=== PATIENT | female | born 1955 | race Caucasian/White ===

== ENCOUNTER → 2017-12-08 16:15 | Outpatient (CLI) | payer OTHER, SELFPAY ==
--- NOTE | 2017-12-08 16:21 | MM_ITS ---
MM Dig screening mamm BI w/CAD ORDERING PHYSICIAN : Pily Hernandez MD PATIENT AGE: 62 years GENDER: Female COMPARISON: Outside films are very helpful in this case March, 2011, December 2012. February 2014 and 2014, June 2016. INDICATION: ITS.REASON: SCREENING TECHNIQUE: Standard CC and MLO images were obtained. R2 CAD reviewed. FINDINGS: Low-density background .. Moderate fatty replacement RIGHT BREAST:Outside films are very helpful in this case to demonstrate that the long-standing post surgical biopsy area and stellate density at superior right breast is stable. In. Stellate area of density at the superior breast 11 o'clock position is again noted .There exams dating back to 2009 which showed this as the long-standing post lumpectomy/radiation site. The density here has diminished progressively since 2009 LEFT BREAST: There is a small area of focal density at the deep lateral left breast best seen on MLO view it measures up to 7 mm length. X 4 mm. And may merely be a summation shadow but is more pronounced today and in this high-risk patient I would suggest return for spot views of this area labeled X best seen on MLO, but also evident laterally on CC,. ( MLO, 90 degrees and cc spot views recommended) IMPRESSION: 1. RIGHT BREAST Stellate area upper outer quadrant right breast but long-standing overall stable and can be followed in one year 2. LEFT BREAST: Small focal area of density deep lateral left breast. May be summation shadow but warrant additional spot views to further evaluate in this high-risk patient. It is best seen on MLO view BI-RADS Category: 0 Need Additional Imaging Evaluaiton. RECOMMENDED FOLLOW-UP: IMM - IMMEDIATE FOLLOW-UP RECOMMENDED Spot views left breast (A letter has been sent to the patient regarding results of the study.)
== END ==
PROVIDERS: Family Provider Family Medicine; PCP Family Medicine; Visit Provider Family Medicine
DX: Z12.31 Encounter for screening mammogram for malignant neoplasm of breast (principal)
CPT/HCPCS: 77067

== ENCOUNTER → 2017-12-09 07:11 | Outpatient (CLI) | payer OTHER, SELFPAY ==
[2017-12-09 07:27] LABS: Basophils # 0.1 K/mm3 (0-0.2); Basophils % 0.6 % (0.1-2.0); Eosinophils # 0.5 K/mm3 (0.0-0.4); Eosinophils % 7.3 % (0.1-12.0); Hematocrit 38.7 % (37.0-47.0); Hemoglobin 12.7 g/dL (12.2-16.2); Lymphocytes # 1.7 K/mm3 (0.7-4.5); Lymphocytes % 22.5 K/mm3 (10-50); Mean Corpuscular HGB Conc 32.9 g/dL (31.8-35.4); Mean Corpuscular Hemoglobin 28.2 pg (27.0-31.2); Mean Corpuscular Volume 85.8 fl (81-99); Mean Platelet Volume 7.4 fl (7.4-10.4); Monocytes # 0.4 K/mm3 (0.1-1.0); Monocytes % 5.6 % (1.7-9.3); Neutrophils # 4.8 K/mm3 (1.8-7.8); Platelet Count 232 K/mm3 (142-424); Red Blood Count 4.51 M/mm3 (4.20-5.40); Red Cell Distribution Width 13.9 % (11.5-17.5); White Blood Count 7.4 K/mm3 (4.8-10.8)
[2017-12-09 07:35] LABS: INR 0.93 (0.9-1.1); Prothrombin Time 9.6 seconds (9.4-11.8)
[2017-12-09 08:16] LABS: Alanine Aminotransferase 53 U/L (12-78); Albumin Level 3.5 gm/dL (3.4-5.0); Albumin/Globulin Ratio 0.9 (1.1-1.8); Alkaline Phosphatase 50 U/L (46-116); Anion Gap 8.4 mEq/L (5-15); Aspartate Amino Transferase 32 U/L (15-37); Bilirubin,Total 0.3 mg/dL (0.2-1.0); Blood Urea Nitrogen 22 mg/dL (7-18); Calcium 9.6 mg/dL (8.5-10.1); Carbon Dioxide 29 mmol/L (21.0-32.0); Chloride 103 mmol/L (98-107); Chol/HDL Ratio 3.8 (1-3.5); Cholesterol 158 mg/dL (140-200); Creatinine,Serum 1.04 mg/dL (0.55-1.02); Estimated Glomerular Filt Rate 54 ml/min (>60); Free T4 (Free Thyroxine) 1.42 ng/dl (0.76-1.46); GFR (African American) 65 ML/MIN (>60); Globulin 4.1 gm/dl (1.3-3.2); Glucose 113 mg/dL (74-106); HDL Cholesterol 42 mg/dL (29-89); LDL Cholesterol 81 mg/dL (0-130); Potassium 4.4 mmoL/L (3.5-5.1); Sodium 136 mmol/L (136-145); Thyroid Stimulating Hormone 0.21 uIU/ml (0.358-3.740); Total Protein,Serum 7.6 gm/dL (6.4-8.2); Triglycerides 176 mg/dL (30-200); VLDL Cholesterol 35 mg/dL (0-40)
[2017-12-10 10:59] LABS: Vitamin B12 1053 pg/mL (232-1245)
== END ==
PROVIDERS: Visit Provider Emergency Medicine
DX: R04.0 Epistaxis (principal); E03.9 Hypothyroidism, unspecified; E53.8 Deficiency of other specified B group vitamins; E78.2 Mixed hyperlipidemia; I10 Essential (primary) hypertension
CPT/HCPCS: 36415; 80053; 80061; 82607; 84439; 84443; 85025; 85610

== ENCOUNTER → 2017-12-18 12:50 | Outpatient (CLI) | payer OTHER, SELFPAY ==
--- NOTE | 2017-12-18 12:57 | MM_ITS ---
MM Dig mamm DX unilat LT CAD, US breast LT complete INDICATION: Follow-up abnormal mammogram ORDERING PHYSICIAN: Suma Wasserman MD PATIENT AGE: 62 years COMPARISON: 12/08/2017, 07/12/2016, 03/02/2015 TECHNIQUE: Problem-solving views performed of the left breast along with left breast ultrasound FINDINGS: There is persistent somewhat ill-defined area of asymmetric density within the outer aspect of the left breast at the 3:00 region measuring approximately 6 mm.. This does persist on the rolled views and a straight ML view. Left breast ultrasound: There is a somewhat ill-defined area of decreased echogenicity measuring approximate 6 mm in the outer aspect of the left breast. This may correspond to the mammographic abnormality but is is questionable. Biopsy is recommended. IMPRESSION: Persistent asymmetric density in the 3:00 region of the right breast with questionable sonographic correlate. Recommend biopsy in this patient with history of breast cancer. Suggest stereotactic directed biopsy BI-RADS Category: 4 Suspicious Abnormality-Biopsy Considered RECOMMENDED FOLLOW-UP: BIO - BIOPSY RECOMMENDED (A letter has been sent to the patient regarding results of the study.)
== END ==
PROVIDERS: Family Provider Family Medicine; PCP Family Medicine; Visit Provider Emergency Medicine
DX: R92.8 Other abnormal and inconclusive findings on diagnostic imaging of breast (principal)
CPT/HCPCS: 76641; 77065

== ENCOUNTER → 2018-01-16 14:36 | Outpatient (CLI) | payer OTHER, SELFPAY ==
[2018-01-16 16:05] LABS: Free T4 (Free Thyroxine) 1.11 ng/dl (0.76-1.46); Thyroid Stimulating Hormone 0.84 uIU/ml (0.358-3.740)
== END ==
PROVIDERS: PCP Emergency Medicine; Visit Provider Emergency Medicine
DX: E03.9 Hypothyroidism, unspecified (principal)
CPT/HCPCS: 36415; 84439; 84443

== ENCOUNTER → 2018-02-04 10:27 | Outpatient (CLI) | payer OTHER, SELFPAY ==
--- NOTE | 2018-02-04 10:30 | MM_ITS ---
MM stereotactic loc LT Post biopsy mammogram ORDERING PHYSICIAN: Willy Parker MD PATIENT AGE: 62 years Comparison: 12/18/2017 Limited focused H&P: HISTORY: Asymmetric density outer aspect left breast PROCEDURE: The patient was placed on the stereotactic table and the abnormality in the lateral aspect of left breast was localized in the most appropriate projection. The breast was prepped in the routine manner, with sterile prep and the overlying skin anesthetized. A 3 to 4 mm skin incision was performed and the 9 gauge Iguana[employer]ee in [place] vacuum-assisted core biopsy needle was advanced to the region of the calcification. Pre- and post fire images were obtained. Post biopsy images show a defect in the area of the mammographic abnormality.. The core biopsies obtained were sent for specimen mammography. The patient tolerated the procedure well without complications. Specimen was sent for pathologic analysis A tiny titanium nonferromagnetic MicroMark was positioned through the mammotome needle into the biopsy site. Postbiopsy mammogram: Postbiopsy changes are present in the outer aspect of the left breast with the clip in place at this region. Pathology: Invasive lobular carcinoma grade 2 IMPRESSION: Successful stereotactic directed biopsy left breast demonstrating invasive lobular carcinoma grade 2. Surgical consult suggested
== END ==
PROVIDERS: Family Provider Family Medicine; PCP Emergency Medicine; Visit Provider Surgery
DX: Z85.3 Personal history of malignant neoplasm of breast (principal); R92.8 Other abnormal and inconclusive findings on diagnostic imaging of breast
CPT/HCPCS: 19081

== ENCOUNTER 2018-08-25 16:00 | Outpatient (RCR) | payer OTHER, SELFPAY | END 2018-08-25 16:05 | disposition home or self-care (01) | LOC: PT 16:00 | DX: C50.812 Malignant neoplasm of overlapping sites of left female breast (principal) | CPT/HCPCS: 97110; 97140; 97163 ==

== ENCOUNTER → 2019-10-11 18:03 | Outpatient (CLI) | payer OTHER, SELFPAY ==
--- NOTE | 2019-10-11 18:11 | XR_ITS ---
PROCEDURE: XR CHEST 2V CLINICAL HISTORY: COUGH Cough, history of breast cancer COMPARISON: No exams were available for comparison FINDINGS: The cardiomediastinal silhouette and pulmonary vascularity are within normal limits. The lungs are clear without infiltrates, suspicious nodules, or pleural effusions. There is mild kyphosis IMPRESSION: No acute findings. Dictated by: Manuel Holland MD 10/11/2019 20:07 Electronically signed by Manuel Holland MD in [place] 10/11/2019 20:07
--- NOTE | 2019-10-11 18:12 | XR_ITS ---
PROCEDURE: XR HAND RT MIN 3V CLINICAL INDICATION: PAIN OF RIGHT THUMB COMPARISON: No exams were available for comparison FINDINGS: There are osteoarthritic changes at the DIP joints of digits 2 and 3. Osteoarthritic changes are present at the 1st metacarpal carpal joint with some erosive change at the base of the 2nd metacarpal. These findings could be related to erosive osteoarthritis. Please correlate with clinical parameters. Other findings:None. 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
== END ==
PROVIDERS: PCP Family Medicine; Visit Provider Family Medicine
DX: M79.644 Pain in right finger(s) (principal); R05 Cough
CPT/HCPCS: 71046; 73130

== ENCOUNTER 2020-02-05 20:48 | Emergency (ER) | payer OTHER, SELFPAY ==
[2020-02-05 20:53] VITALS: BP 110/78; PULSE 66; RESP 18; TEMP 36.7; O2SAT 99; BMI 28.3
--- NOTE | 2020-02-05 20:56 | PC.NURSE ---
Patient states that she had her Tdap within the past 2 years.
--- NOTE | 2020-02-05 20:59 | HMH.EDUTC ---
[facility] [place] [facility] [place] Clinical Impression: Laceration Disposition: Home, Self-Care Condition on Discharge: Good Instructions: How to Care for a Laceration After Repair, DI for Laceration Repair With Dermabond Additional Instructions: Do not pick or scratch off dermabond allow it to wear off finger Do not get it wet Keep area clean and dry no bandaids loose dressing if needed Straight to ER if any life threatening symptoms Follow up with Family Doctor if needed Watch for signs of infection such as redness, drainage streaks etc Return if needed Straight to ER if any life threatening symptoms Referrals: Pily Hernandez MD [Primary Care Provider] - As needed Time of Disposition: 21:07 Medical Decision Making - John Inquiry Pt receiving controlled substance: No John was queried for this patient: No Vital Signs: 02/05/20 20:53 Temperature 98.1 F Temperature Source Oral Pulse Rate [Radial] 66 Respiratory Rate 18 Blood Pressure [Right Arm] 110/78 Blood Pressure Mean [Right Arm] 88 Blood Pressure Source [Right Arm] Automatic Cuff Blood Pressure Position [Right Arm] Sitting 02 Sat by Pulse Oximetry 99 Oxygen Delivery Method Room Air [facility] [place] [facility] [place] HPI - General Stated complaint: AO [id number] Lac L Index finger Time Seen by Provider: 02/05/20 20:59 Mode of Arrival: Ambulatory Source of Information: Patient Limitations: No Limitations Description of Symptoms (Recalled from Triage Doc. by RN): lac to left index finger HEENT Symptoms (Recalled from RN notes): No Resp Symptoms (Recalled from RN notes): No Skin Symptoms (Recalled from RN notes): Yes MS Symptoms (Recalled from RN notes): No Functional Status (Recalled from RN notes): wnl - History of Present Illness Provider Complaint: Patient states that she was cutting up a pork tenderloin when the knife slipped and cut her on her left index finger beside her nail area States that she applied pressure and bandage and family was worried and wanted her to get it checked - Related Data Home Medications Medication Instructions Recorded Confirmed atorvastatin 10 mg tablet 10 mg PO DAILY 01/16/18 06/10/18 levothyroxine 112 mcg capsule 112 mcg PO DAILY 01/16/18 06/10/18 triamterene 37.5 1 tab PO DAILY 01/16/18 03/14/18 mg-hydrochlorothiazide 25 mg tablet Cholecalciferol (Vitamin D3) 5,000 unit PO DIRECTED 03/14/18 06/10/18 [Vitamin D3] Cyanocobalamin (Vitamin B-12) 1,000 mcg PO DIRECTED 03/14/18 06/10/18 [B-12] Ubidecarenone [Coenzyme Q10] 100 mg PO DAILY 03/14/18 06/10/18 aspirin 81 mg tablet,delayed 81 mg PO DAILY 06/10/18 06/10/18 release letrozole 2.5 mg tablet 2.5 mg PO DAILY 06/10/18 06/10/18 Allergies Allergy/AdvReac Type Severity Reaction Status Date / Time No Known Allergies Allergy Verified 06/10/18 15:09 - Worker's Comp Is this a Worker's Comp case?: No [facility] History - Hepatitis A Screen Drug use history?: No High risk sexual behaviors?: No History of sexually transmitted infection?: No Currently employed?: No Childcare worker?: No Do you have indoor plumbing?: Yes Do you have electricity?: Yes Attestation statement:: This patient has been screened for Hepatitis A risk factors. I have reviewed the patient's past medical history: Yes Medical History: Reports:: Cancer Denies:: Diabetes Mellitus Type 1, Diabetes Mellitus Type 2 Laterality Cases: Right: Lumpectomy, Bilateral: Breast Biopsy, Mastectomy Other Surgeries: Yes: Cancer Surgery, , Other Comment: ovary removed, breast lump removed - Social History Smoking Status: Former smoker Alcohol Intake: never Substance Use Type: denies use Occupational Status: other Housing: house Family Hx:: Diabetes, Heart Attack, Hyperlipidemia, Hypertension, Stroke, Thyroid Disorder, Cancer ROS Obtained: Yes All systems reviewed & no additional complaints, Yes Systems reviewed as appropriate & no additional complaints - Allergic/Immunologic Comments: Laceration to left
[2020-02-05 21:08] VITALS: BP 110/78; PULSE 66; RESP 18; TEMP 36.7; O2SAT 99
== END 2020-02-05 21:12 | disposition home or self-care (01) ==
PROVIDERS: Emergency Provider Nurse Practitioner; PCP Family Medicine
DX: S61.211A Laceration without foreign body of left index finger without damage to nail, initial encounter (principal); W26.0XXA Contact with knife, initial encounter; Y92.010 Kitchen of single-family (private) house as the place of occurrence of the external cause; Z90.13 Acquired absence of bilateral breasts and nipples; Z87.891 Personal history of nicotine dependence
CPT/HCPCS: 12001; 99201

== ENCOUNTER → 2020-08-05 08:45 | Outpatient (CLI) | payer OTHER, SELFPAY ==
[2020-08-05 10:32] LABS: Coronavirus 19 IgG Antibody Positive (Negative); Coronavirus 19 IgM Antibody Negative (Negative)
== END ==
PROVIDERS: Visit Provider Internal Medicine Gastroenterology
DX: Z01.812 Encounter for preprocedural laboratory examination (principal); Z20.822 Contact with and (suspected) exposure to COVID-19; Z12.11 Encounter for screening for malignant neoplasm of colon
CPT/HCPCS: 36415; 86328

== ENCOUNTER 2020-08-07 12:21 | Day surgery (SDC) | payer OTHER, SELFPAY ==
[2020-08-02 13:36] VITALS: BMI 28.3
[2020-08-07] VITALS (7 sets, daily range): BP systolic 120–139; BP diastolic 58–101; PULSE 63–75; RESP 14–18; TEMP 36.6–37.2; O2SAT 96–100
--- NOTE | 2020-08-07 14:40 | P.PN_ITS ---
[facility] Anesthesia Checklist - Patient Identification Patient Identification: Arm Band - Structural Data Admitted From: Home Planned Operative Procedure/s: Colonoscopy Consent for Planned Operative Procedure(s) Verified: Yes - NPO Status Verified Time NPO: 00:00 - Airway Assessment Dentition: Dentures-good fit - Neurological Assessment Level of Consciousness: Awake, Alert Hx Seizures: No Numbness or tingling in extremities: No - Anesthesia Plan Anesthesia Risk discussed: Yes Anesthesia Plan: Verified ASA Class: II Anesthesia Type: MAC [facility] History I have reviewed the patient's past medical history: Yes Medical History: Reports:: Cancer (BREAST), Hyperlipidemia, Hypertension Denies:: Diabetes Mellitus Type 1, Diabetes Mellitus Type 2, MRSA, Seizures *Have you ever received a pneumonia vaccine?: Yes *Have you received a flu vaccine this season?: Yes Other Medical History: Reports: Hypothyroidism Anesthesia experience/problems:: None Laterality Cases: Right: Lumpectomy, Bilateral: Breast Biopsy, Mastectomy Other Surgeries: Yes: Cancer Surgery, , Other Amputation: No Fractures: No - *Social History Last grade of school completed: High school graduate Smoking Status: Former smoker Alcohol Intake: never Substance Use Type: denies use *Occupational Status:: employed Housing: house *Travel in the last 8 weeks: None Family Hx:: Diabetes, Heart Attack, Hyperlipidemia, Hypertension, Stroke, Thyroid Disorder, Cancer
--- NOTE | 2020-08-07 15:07 | P.PCN_ITS ---
[facility] Procedure Note Procedure Note:: Colonoscopy Procedure Report: Colonoscopy with cold snare polypectomy Endoscopist: Greg Shaffer II, MD Referring physician: Daniel Hernandez MD Date of Procedure: August 07, 2020 Equipment: Olympus 190 variable stiffness pediatric colonoscope Sedation: MAC sedation Indication: Mrs. Tobar is a 64-year-old female who is here for follow-up screening/surveillance colonoscopy. She did have a colonoscopy 12 years ago at age 52 that was normal. She reports no abdominal pain, weight loss, change in her bowel habits or rectal bleeding. She reports no family history of colon cancer. Procedure: Prior to the procedure, a history and physical exam was performed, and patient's medications and allergies were reviewed. The risks, benefits and alternatives of the sedation and procedure were discussed with the patient. All questions were answered and informed consent was obtained. The patient was brought to the procedure room. Patient identification and proposed procedure were verified by the physician and the nurse. The patient was placed in a left lateral decubitus position and the scope was passed under direct vision. Throughout the procedure, the patient's blood pressure, pulse, and oxygen saturations were monitored continuously. The colonoscopy was accomplished without difficulty. The patient tolerated the procedure well. Findings: On digital rectal examination there was normal rectal tone. There were no external hemorrhoids. The colonoscope was introduced through the anal canal t o the rectum and advanced to the cecum. The ileocecal valve and appendiceal orifice were identified. The scope was advanced a short distance into the ileum which appeared grossly normal. The scope was then withdrawn into the colon. The cecum, ascending and transverse colon and mucosa were grossly normal. There were scattered diverticuli throughout the descending and sigmoid colon (LEFT colon). There was a diminutive hyperplastic appearing 4 mm polyp in the rectum removed via cold snare polypectomy. Upon retroflexion within the rectum there were grade 1-2 internal hemorrhoids. The preparation was excellent throughout with Morning Sun Preparation Score of 9. The cecal time was 12 minutes. Impression: 1. Diminutive rectal polyp (rule out hyperplastic polyp) 2. Left-sided diverticulosis 3. Grade 1-2 internal hemorrhoids Plan: I will follow up the polyp histology and if the polyp is hyperplastic, she will not require surveillance colonoscopy again for 10 years. I would encourage fiber supplementation on a long-term daily maintenance basis.
--- NOTE | 2020-08-07 15:11 | HMH.ANESI ---
[facility] Anesthesia Record Part I Intake, IV Amount: 600 Estimated blood loss (mL): 0 Urine output (mL): 0 Blood Pressure: 126/58 SaO2: 97 Pulse Rate: 74 Respiratory Rate: 14 Temperature: 98.9 F Patient is:: Drowsy Stable to PACU at:: 15:10
== END 2020-08-07 15:40 | disposition home or self-care (01) ==
LOC: OUTP 12:23
PROVIDERS: PCP Family Medicine; Visit Provider Internal Medicine Gastroenterology
PROC: 0DJD8ZZ Inspection of Lower Intestinal Tract, Via Natural or Artificial Opening Endoscopic (ICD-10-PCS; CPT 45378; principal; 2020-08-07 13:30)
DX: Z12.11 Encounter for screening for malignant neoplasm of colon (principal); K62.1 Rectal polyp; K57.30 Diverticulosis of large intestine without perforation or abscess without bleeding; K64.0 First degree hemorrhoids; E78.5 Hyperlipidemia, unspecified; I10 Essential (primary) hypertension; Z85.3 Personal history of malignant neoplasm of breast; Z90.10 Acquired absence of unspecified breast and nipple; Z87.891 Personal history of nicotine dependence; Z83.3 Family history of diabetes mellitus; Z82.49 Family history of ischemic heart disease and other diseases of the circulatory system; Z83.49 Family history of other endocrine, nutritional and metabolic diseases; Z82.3 Family history of stroke
CPT/HCPCS: 45385

== ENCOUNTER → 2021-07-19 14:40 | Outpatient (CLI) | payer OTHER, SELFPAY ==
[2021-07-19 16:11] LABS: Basophils # 0.1 K/mm3 (0-0.2); Basophils % 0.9 % (0.1-2.0); Eosinophils # 0.6 K/mm3 (0.0-0.4); Eosinophils % 7.4 % (0.1-12.0); Hematocrit 39.9 % (37.0-47.0); Hemoglobin 13.3 g/dL (12.2-16.2); Lymphocytes % 26.2 % (10-50); Mean Corpuscular HGB Conc 33.3 g/dL (31.8-35.4); Mean Corpuscular Hemoglobin 29.1 pg (27.0-31.2); Mean Corpuscular Volume 87.4 fl (81-99); Mean Platelet Volume 8.9 fl (7.4-10.4); Monocytes # 0.5 K/mm3 (0.1-1.0); Neutrophils # 4.6 K/mm3 (1.8-7.8); Neutrophils % 59.4 % (37.0-80.0); Platelet Count 251 K/mm3 (142-424); Red Blood Count 4.56 M/mm3 (4.20-5.40); Red Cell Distribution Width 14.4 % (11.5-17.5); White Blood Count 7.7 K/mm3 (4.8-10.8)
[2021-07-19 16:31] LABS: Chloride 104 mmol/L (98-107)
[2021-07-19 16:32] LABS: Sodium 140 mmol/L (136-145)
[2021-07-19 16:34] LABS: Alanine Aminotransferase 58 U/L (12-78); Aspartate Amino Transferase 53 U/L (14-36); Blood Urea Nitrogen 22 mg/dl (7-17); Estimated Glomerular Filt Rate 63 ml/min (>60); GFR (African American) 77 ML/MIN (>60)
[2021-07-19 16:35] LABS: Albumin Level 4.3 g/dl (3.5-5.0); Albumin/Globulin Ratio 1.4 (1.1-1.8); Alkaline Phosphatase 65 U/L (38-126); Bilirubin,Total 0.5 mg/dl (0.2-1.3); Calcium 8.9 mg/dl (8.4-10.2); Carbon Dioxide 28 mmol/L (22.0-30.0); Globulin 3.1 g/dL (1.3-3.2); Glucose 102 mg/dl (74-100); Total Protein,Serum 7.4 g/dl (6.3-8.2)
[2021-07-19 16:50] LABS: Free T4 (Free Thyroxine) 1.32 ng/dl (0.78-2.19)
[2021-07-19 17:05] LABS: Thyroid Stimulating Hormone 0.93 uIU/mL (0.465-4.68)
== END ==
PROVIDERS: PCP Family Medicine; Visit Provider Physician Assistant
DX: I10 Essential (primary) hypertension (principal); E03.9 Hypothyroidism, unspecified; J06.9 Acute upper respiratory infection, unspecified
CPT/HCPCS: 36415; 80053; 84439; 84443; 85025

== ENCOUNTER → 2022-08-14 13:33 | Outpatient (CLI) | payer OTHER, SELFPAY ==
--- NOTE | 2022-08-14 13:37 | US_ITS ---
FINAL REPORT CLINICAL HISTORY: HEAVY SENESATION IN LEGS,EX SMOKER,HTN,HLD COMPARISON: None FINDINGS: ANKLE-BRACHIAL PRESSURE INDICES Pressure indices are as follows: RIGHT LOWER EXTREMITY: Ankle-brachial pressure index: 1.32 Comments: Normal LEFT LOWER EXTREMITY: Ankle-brachial pressure index: 1.32 Comments: Normal IMPRESSION: No evidence of significant obstructive peripheral vascular disease of the lower extremities Reviewed, Interpreted and Dictated by Willy Gómez III, MD Transcribed by Kala Branham Authenticated and [facility]
--- NOTE | 2022-08-14 14:16 | US_ITS ---
FINAL REPORT TECHNIQUE: Sonographic images of the thyroid were obtained. CLINICAL HISTORY: GOITER FINDINGS: THYROID ULTRASOUND The right thyroid gland measures 5.4 x 2.0 x 2.1 cm. The left thyroid gland measures 4.0 x 2.2 x 1.7 cm. It is somewhat enlarged and heterogeneous consistent with a goiter or thyroiditis. There is no mass or nodule identified. IMPRESSION: Findings consistent with a goiter or thyroiditis. Reviewed, Interpreted and Dictated by Willy Gómez III, MD Transcribed by Joana Navarro Authenticated and . [facility]
== END ==
PROVIDERS: PCP Family Medicine; Visit Provider Physician Assistant
DX: R29.898 Other symptoms and signs involving the musculoskeletal system (principal); E04.9 Nontoxic goiter, unspecified
CPT/HCPCS: 76536; 93923

== ENCOUNTER 2022-08-19 11:25 | Emergency (ER) | payer OTHER, SELFPAY ==
--- NOTE | 2022-08-19 11:41 | EXP.UTC ---
Discharge Plan Disposition Patient Disposition: Home, Self-Care Condition: Good Prescriptions Prescriptions: New ibuprofen [ibuprofen] 600 mg tablet 600 mg PO Q6HP PRN (Reason: Mild Pain) Qty: 30 0RF No Action levothyroxine 112 mcg capsule 112 mcg PO DAILY atorvastatin [Lipitor] 10 mg tablet 10 mg PO DAILY triamterene-hydrochlorothiazid 37.5-25 mg tablet 1 tab PO DAILY cholecalciferol (vitamin D3) 1,250 mcg (50,000 unit) capsule 1,250 mcg PO WEEKLY 84 Days Qty: 12 2RF aspirin 81 mg tablet,delayed release (DR/EC) 81 mg PO DAILY letrozole [Femara] 2.5 mg tablet 2.5 mg PO DAILY levothyroxine 112 mcg tablet 112 mcg PO Label Comments: TAKE 1 TABLET BY MOUTH EVERY DAY cyanocobalamin (vitamin B-12) 1,000 MCG tablet 1,000 mcg PO DIRECTED cholecalciferol (vitamin D3) 5,000 UNIT capsule 5,000 unit PO DIRECTED coenzyme Q10 100 MG tablet 100 mg PO DAILY Referrals Follow up/Referrals: Pily Hernandez MD [Primary Care Provider] - See instructions Ayana Hurtado DPM [Staff Physician] - See instructions Activity Restrictions/Add. Instructions Additional Instructions/Restrictions: Rest the extremity, apply ice for 15 minutes as tolerated three or four times per day, Wear the luis wrap for compression, Elevate the extremity as tolerated while you are resting. Take ibuprofen for pain. I sent in a prescription to your pharmacy. Follow up with Dr. Hurtado (podiatry). I put in a referral but you need to call her office and schedule an appointment. Follow up with your regular doctor. Use the crutches and the boot for ambulation until you are told different by Dr. Hurtado. GO TO THE ER FOR ANY WORSENING SYMPTOMS Clinical Impressions Clinical Impression: Sprain of left foot, Fracture of distal end of left fibula Instructions Patient Instructions: DI for Ankle Sprain, DI for Foot Sprain Discharge ED Provider: Dario Barrera [facility] General Stated complaint: AO [id number] left ankle injury, home accident Time Seen by Provider: 08/19/22 11:41 History of Present Illness Provider Complaint: She states that on 08/14, she missed a step out of her chicken coop and fell. When she fell she twisted her left foot and ankle. Since then she has had left foot and ankle pain and swelling that is worse with bearing weight and walking. She denies other injury. Related Data Home Medications Medication Instructions Recorded Confirmed atorvastatin 10 mg tablet (Lipitor) 10 mg PO DAILY Cholesterol 01/16/18 08/20/22 levothyroxine 112 mcg capsule 112 mcg PO DAILY hypothyroid 01/16/18 08/20/22 triamterene 37.5 1 tab PO DAILY High blood pressure 01/16/18 08/20/22 mg-hydrochlorothiazide 25 mg tablet cholecalciferol (vitamin D3) 125 5,000 unit PO DIRECTED 03/14/18 08/20/22 mcg (5,000 unit) capsule Supplement coenzyme Q10 100 mg tablet 100 mg PO DAILY Supplement 03/14/18 08/20/22 cyanocobalamin (vitamin B-12) 1,000 mcg PO DIRECTED Supplement 03/14/18 08/20/22 1,000 mcg tablet aspirin 81 mg tablet,delayed 81 mg PO DAILY Blood thinner 06/10/18 08/20/22 release letrozole 2.5 mg tablet (Femara) 2.5 mg PO DAILY BREAST Ca 06/10/18 08/20/22 levothyroxine 112 mcg tablet 112 mcg PO 07/11/21 08/20/22 Previous Rx's Medication Instructions Recorded ibuprofen 600 mg tablet 600 mg PO Q6HP PRN Mild Pain #30 08/19/22 tabs cholecalciferol (vitamin D3) 1,250 1,250 mcg PO WEEKLY 12 weeks #12 08/20/22 mcg (50,000 unit) capsule caps Allergies Allergy/AdvReac Type Severity Reaction Status Date / Time No Known Allergies Allergy Verified 08/20/22 13:34 [facility] Disclaimer: The information contained in this section may have been updated after the patient was seen, as this information can be updated by other users. Social History Smoking Status: Never smoker alcohol intake: never substance u
[2022-08-19 11:48] VITALS: BP 110/81; PULSE 80; RESP 16; TEMP 36.6; O2SAT 98; BMI 28.3
--- NOTE | 2022-08-19 11:54 | PC.NURSE ---
Pt has had bilateral breast node removals. Asked that blood pressure be taken in her left forearm. Blood pressure cuff would not read. Pressure attempted twice and then twice in her right forearm. Blood pressure would still not read. Patient stated that it was fine to take her pressure in her left upper arm as long as you hurry . Blood pressure was taken once with red cuff and read appropriately.
--- NOTE | 2022-08-19 11:55 | XR_ITS ---
FINAL REPORT CLINICAL HISTORY: fall, twisted ankle FINDINGS: LEFT ANKLE Three views demonstrate moderate soft tissue swelling about the ankle, particularly laterally. There is a transverse nondisplaced fracture through the distal fibula. The mortise is intact. A small plantar spur is present. IMPRESSION: Fracture through the distal fibula. Reviewed, Interpreted and Dictated by Vu Francisco MD Transcribed by Joana Navarro Authenticated and [facility]
--- NOTE | 2022-08-19 11:55 | XR_ITS ---
FINAL REPORT CLINICAL HISTORY: fall, twisted ankle FINDINGS: LEFT FOOT Three views demonstrate no acute fracture or dislocation. There is a small plantar spur. The joint spaces appear normal. No acute soft tissue abnormality is seen. IMPRESSION: No acute process. Reviewed, Interpreted and Dictated by Vu Francisco MD Transcribed by Joana Navarro Authenticated and [facility]
[2022-08-19 13:24] VITALS: BP 110/80; PULSE 80; RESP 16; TEMP 36.6; O2SAT 98
== END 2022-08-19 13:26 | disposition home or self-care (01) ==
PROVIDERS: Emergency Provider Nurse Practitioner Family; PCP Family Medicine
DX: S93.402A Sprain of unspecified ligament of left ankle, initial encounter (principal); S93.602A Unspecified sprain of left foot, initial encounter; X58.XXXA Exposure to other specified factors, initial encounter
CPT/HCPCS: 73610; 73630; 99204; 99212; G0463

== ENCOUNTER → 2022-09-05 09:06 | Outpatient (CLI) | payer OTHER, SELFPAY ==
--- NOTE | 2022-09-05 09:09 | XR_ITS ---
FINAL REPORT CLINICAL HISTORY: left ankle distal fibula fracture f/u COMPARISON: 08/19/2022 FINDINGS: LEFT ANKLE: Three views of the left ankle were obtained. Transverse fracture of the lateral malleolus is stable compared to the prior study. The bony alignment is stable. There is no acute fracture or dislocation. There is mild degenerative change. Calcaneal spurs are noted. Partially improved lateral soft tissue swelling. IMPRESSION: Stable transverse fracture lateral malleolus with improved soft tissue swelling. Reviewed, Interpreted and Dictated by Willy Gómez III, MD Transcribed by Kala Branham Authenticated and [facility]
== END ==
PROVIDERS: PCP Family Medicine; Visit Provider Podiatrist
DX: S93.402A Sprain of unspecified ligament of left ankle, initial encounter (principal)
CPT/HCPCS: 73610

== ENCOUNTER → 2022-09-24 09:03 | Outpatient (CLI) | payer MEDICARE, OTHER, SELFPAY ==
--- NOTE | 2022-09-24 09:08 | XR_ITS ---
FINAL REPORT CLINICAL HISTORY: left ankle fracture COMPARISON: 08/19/2022 FINDINGS: LEFT ANKLE Three views demonstrate a healing transverse fracture of the lateral malleolus also present on the prior exam of August 19. There is mild degenerative change present in the ankle mortise.. The soft tissues are unremarkable. IMPRESSION: Healing transverse fracture of the lateral malleolus. Reviewed, Interpreted and Dictated by Pily Marie MD Transcribed by Shahida Pulido Authenticated and [facility]
== END ==
PROVIDERS: PCP Family Medicine; Visit Provider Podiatrist
DX: M25.572 Pain in left ankle and joints of left foot (principal); S82.832A Other fracture of upper and lower end of left fibula, initial encounter for closed fracture; S99.912A Unspecified injury of left ankle, initial encounter
CPT/HCPCS: 73610

== ENCOUNTER 2022-10-31 16:00 | Outpatient (RCR) | payer MEDICARE, OTHER, SELFPAY ==
--- NOTE | 2022-10-07 09:56 | HMH.PTOPEV ---
PT Outpatient Evaluation Rehab PT Outpatient Evaluation Start: 10/07/22 09:00 Freq: Status: Active Protocol: Document 10/07/22 09:47 TERRELLALBER (Rec: 10/07/22 09:56 MAGGY [id number]) E-signed By Dea Ledezma, PT Outpatient Therapy Subjective History Subjective History Pt is a 66 y/o female who reports she fell on 08/14/22 while stepping out of her chicken coup. Pt reports this resulted in a nondislaced fracture of the L distal fibula. Pt reports she was placed in a boot initially and recently transitioned to a support shoe and ankle brace 2 weeks ago. Pt had a left ankle radiograph performed on 09/24 with impression of healing transverse fracture of the lateral malleolus. Pt denies true pain just occasional discomfort through the foot. Pt denies paresthesia. Pt does report constant swelling of the lateral malleoli. Pt denies recent falls or trauma to the ankle. Pt reports she has been peforming ankle pumps and circles at home. Pt reports she returns to Dr. Hurtado on November 05 for another f/u visit. Medical History: high blood pressure, high cholesterol, hx of breast cancer Edema: L figure 8: 54cm Balance: tandem EO 18 with self-corrected LOB Chief Complaint Swelling Symptoms Relieved By Rest/Positioning,Ice,Brace/ Support Prior Functional Limitations None Current Functional Limitations Walking,Stairs,Balance Ankle/Foot Eval Gait Observation General Gait Pattern Observation Decrease Weight Bear (L) Palpation Tenderness left Ankle/Foot Palpation Findings Tenderness Ankle/Foot Palpation Overall Comment laterall malleoli ROM Ankle/Foot Dorsiflexion w/Knee Extended 9 Active Range Motion (degrees) Ankle/Foot Plantar Flexion Active Range 35 of Motion (degrees) Ankle/Foot Eversion Active Range of 9 Motion (degrees) Ankle/Foot Inver
== END 2022-10-31 16:05 | disposition home or self-care (01) ==
LOC: PT 16:00
PROVIDERS: PCP Family Medicine; Visit Provider Podiatrist
DX: M25.572 Pain in left ankle and joints of left foot (principal); M25.372 Other instability, left ankle; S99.912D Unspecified injury of left ankle, subsequent encounter
CPT/HCPCS: 97110; 97112; 97163; 97530